=== PATIENT | male | born 1945 | race Caucasian/White ===

== ENCOUNTER → 2017-12-04 09:16 | Outpatient (CLI) | payer MEDICARE, OTHER, SELFPAY ==
--- NOTE | 2017-12-04 09:21 | RAD_ITS ---
XR Chest 2 Views INDICATION: patient has been ill x 2 months, aspiration pneumonia COMPARISON: None TECHNIQUE: Frontal and lateral views of the chest FINDINGS: The heart size and pulmonary vascularity are within normal limits. Lungs are clear without evidence of airspace consultation of pleural effusion. Osseous structures demonstrate bridging osteophytes at the thoracic spine. Postsurgical changes are noted at the right shoulder. RAD/Chest PA and Lateral IMPRESSION: No radiographic evidence of acute intrathoracic disease. at 2027 Reported and signed by: Lydia Riddle MD Electronically Signed: Lydia Riddle MD at 19:25 EST Tel , Service support ,
== END ==
PROVIDERS: Family Provider Internal Medicine; PCP Internal Medicine; Visit Provider Internal Medicine
DX: J69.0 Pneumonitis due to inhalation of food and vomit (principal)
CPT/HCPCS: 71046

== ENCOUNTER → 2018-01-15 16:43 | Outpatient (CLI) | payer MEDICARE, OTHER, SELFPAY ==
[2018-01-15 19:43] LABS: Free T3 2.5 pg/mL (2.18-3.98); T4 Free Direct 0.83 ng/dL (0.76-1.46); Thyroid Stim Hormone (TSH) 0.14 uIU/mL (0.358-3.74)
== END ==
PROVIDERS: Family Provider Internal Medicine; PCP Internal Medicine; Visit Provider Internal Medicine Endocrinology, Diabetes & Metabolism
DX: E05.20 Thyrotoxicosis with toxic multinodular goiter without thyrotoxic crisis or storm (principal)
CPT/HCPCS: 84439; 84443; 84481

== ENCOUNTER → 2018-02-21 16:43 | Outpatient (CLI) | payer MEDICARE, OTHER, SELFPAY ==
--- NOTE | 2018-02-21 16:47 | RAD_ITS ---
STUDY: X-RAY - RIGHT KNEE REASON FOR EXAM: Male, 73 years old. PAIN S/P FALL LAST NIGHT TECHNIQUE: 4 view(s) of the knee. COMPARISON: None. FINDINGS: Normal visualized distal femur. Normal visualized proximal tibia and fibula. Normal proximal tibiofibular articulation. There is mild degenerative arthrosis of the medial femorotibial compartment. Moderate joint space loss noted. Normal lateral femorotibial compartment. Normal patellofemoral articulation. There is a moderate volume joint effusion. There is mild enthesopathy seen in association with the patella tendon insertion upon the tibia. RAD/Knee 4 or More Views IMPRESSION: Medial joint space loss. Moderate joint effusion. No evidence of fracture or dislocation. Electronically Signed: Susan Alicia MD at 17:23 EDT Tel , Service support ,
--- NOTE | 2018-02-21 16:47 | RAD_ITS ---
STUDY: X-RAY - RIGHT TIBIA AND FIBULA REASON FOR EXAM: Male, 73 years old. PROXIMAL PAIN S/P FALL LAST NIGHT TECHNIQUE: 2 view(s) of the tibia and fibula were obtained. COMPARISON: None. FINDINGS: Normal visualized tibia. There does appear enthesopathy seen in association with the insertion site of the patella tendon upon the tibia. Normal visualized fibula. There is moderate medial joint space loss of the knee. The articulation at the ankle has an unremarkable appearance. No fracture. The soft tissue structures are unremarkable. RAD/Tibia & Fibula 2 Views IMPRESSION: No acute abnormality. No evidence fracture. Electronically Signed: Susan Alicia MD at 17:23 EDT Tel , Service support ,
== END ==
PROVIDERS: Family Provider Internal Medicine; PCP Internal Medicine; Visit Provider Internal Medicine
DX: M25.561 Pain in right knee (principal); M25.461 Effusion, right knee
CPT/HCPCS: 73564; 73590

== ENCOUNTER → 2018-02-22 16:53 | Outpatient (CLI) | payer MEDICARE, OTHER, SELFPAY ==
[2018-02-22 16:58] LABS: Bacteria 0 SEEN /hpf (None Seen); Mucous, Urine 0 SEEN /hpf (<or=2+)
--- NOTE | 2018-02-22 17:23 | RAD_ITS ---
STUDY: X-RAY CHEST REASON FOR EXAM: Male, 73 years old. Syncope. TECHNIQUE: PA and lateral views of the chest. COMPARISON: December 04, 2017. FINDINGS: There is hyperinflation of the lungs consistent with chronic obstructive lung disease (COPD). There is no demonstrated pleural abnormality. Normal size heart. Normal mediastinum and seble. Normal visualized pulmonary arteries. There is atherosclerotic tortuosity of the aortic arch and descending thoracic aorta. There are diffuse degenerative changes of the visualized thoracic spine. Postoperative changes of the right shoulder. There is no demonstrated abnormality of the visualized soft tissue structures of the upper abdomen. RAD/Chest PA and Lateral IMPRESSION: Degenerative changes, as described above. No demonstrated acute cardiopulmonary process. Electronically Signed: Camacho Colon MD at 16:52 EDT , Service support ,
[2018-02-22 17:46] LABS: Color, Urine Yellow (Yellow); Glucose, Dipstick Normal (Normal); Ketone-Dipstick Negative (Negative); Leukocyte Esterase-Dipstick 25 /ul (Negative); Nitrite-Dipstick Negative (Negative); Occult Blood-Urine 10 /ul (Negative); Protein-Dipstick Negative (Negative); Urine Bilirubin Dipstick Negative (Negative); Urine Clarity Clear (Clear); Urine Urobilinogen Normal (Normal)
[2018-02-22 17:49] LABS: Hematocrit 35.6 % (40-54); Hemoglobin 11.7 g/dl (13.0-16.5); Mean Corp Hgb Conc 32.9 g/gl (32-36); Mean Corpuscular Volume 94.4 fL (80-94); Mean Platelet Vol. 9.2 fl (6.2-12.0); Platelet Count 126 K/mm3 (150-450); RBC Distribution Width CV 13.2 % (11.6-14.6); RBC Distribution Width SD 43.7 fl (35.1-43.9); Red Blood Count 3.77 M/mm3 (4.6-6.2); White Blood Count 4.2 K/mm3 (4.4-11.0)
[2018-02-22 17:53] LABS: Red Blood Cells-Urine 0-5 SEEN /hpf (0-5); Squamous Epithelial Cells - UA 0-5 SEEN /hpf (0-5); White Blood Cells 0-5 SEEN /hpf (0-5)
[2018-02-22 18:03] LABS: Anion Gap 6 (5-15); BUN 25 mg/dL (7-18); BUN/Creat Ratio 20.2 RATIO (10-20); Calcium,Total 8.5 mg/dL (8.5-10.1); Chloride 106 mmol/L (98-107); Creatinine, Serum 1.24 mg/dL (0.70-1.30); EST Glomerular Filtration Rate 60 mL/min (>60); Est Glom Filt Rate - Afr Amer 73 mL/min (>60); Glucose 84 mg/dL (74-106); Potassium 4.2 mmol/L (3.5-5.1); Sodium Level 140 mmol/L (136-145)
[2018-02-22 18:25] LABS: Scan Indicated on CBC? Y/N NO
[2018-02-22 19:40] LABS: International Normalized Ratio 1.1; Prothrombin Time (Protime)PT. 13.9 SECONDS (11.7-14.9)
== END ==
PROVIDERS: Family Provider Internal Medicine; PCP Internal Medicine; Visit Provider Internal Medicine Cardiovascular Disease
DX: R55 Syncope and collapse (principal)
CPT/HCPCS: 36415; 71046; 80048; 81001; 85027; 85610

== ENCOUNTER → 2018-02-26 09:08 | Day surgery (SDC) | payer MEDICARE, OTHER, SELFPAY ==
[2018-02-23 09:10] VITALS: BMI 31.2
--- NOTE | 2018-02-26 11:38 | CL.IE_ITS ---
Patient: ALVERTO MCCONNELL Study Date: 02/26/2018 Performing: Grady Dolan MD : 1945 Age: 73 Gender: male PROCEDURES PERFORMED [id number] OF LOOP RECORDER INDICATIONS Syncope PROCEDURE DETAILS The patient was brought to the Catheterization Lab in the postabsorptive nonsedated state. Informed consent was obtained prior to the procedure. Local anesthetic was given subcutaneously to the left up per chest area with Lidocaine 2%. Incision was made to the left upper chest. ICM Loop Recorder was in serted. Steri-strips applied to left subclavicular incision. The patient tolerated the procedure wel l. Estimated Blood Loss: < 10 mls IMPLANTED / EX-PLANTED DEVICES IMPLANTED DEVICE(S): ICM Loop Recorder - Welder Setter Resistance Machine: Vericept, Model # Reveal [id number] LNQ11 , Serial # [id number] DEVICE PARAMETERS CONCLUSIONS / RECOMMENDATIONS Device Conclusions: Successful implantation of a patient activated loop recorder. Device Recommendations: Follow up with Primary Care Physician PROCEDURE MEDICATIONS Versed 1 mg IV Oxygen: 2 L/min via nasal cannula Ancef 2 Gm IV @ 02/26/2018 11:05:28 Signed By Grady Dolan MD On 02/26/2018 11:37:39 Grady Dolan MD
== END ==
PROVIDERS: Family Provider Internal Medicine; PCP Internal Medicine; Visit Provider Internal Medicine Cardiovascular Disease
DX: I95.1 Orthostatic hypotension (principal); E78.5 Hyperlipidemia, unspecified; I49.1 Atrial premature depolarization; F03.90 Unspecified dementia, unspecified severity, without behavioral disturbance, psychotic disturbance, mood disturbance, and anxiety; G20 Parkinson's disease; F02.80 Dementia in other diseases classified elsewhere, unspecified severity, without behavioral disturbance, psychotic disturbance, mood disturbance, and anxiety; Z79.899 Other long term (current) drug therapy
CPT/HCPCS: 33282; 99152; J7040

== ENCOUNTER → 2018-05-09 09:12 | Outpatient (CLI) | payer MEDICARE, OTHER, SELFPAY ==
--- NOTE | 2018-05-09 09:20 | RAD_ITS ---
STUDY: BARIUM ESOPHAGRAM REASON FOR EXAM: Male, 73 years old. Dysphagia RADIATION DOSAGE (If Supplied By Facility): CTDIvol = ( ) mGy, DLP = ( ) mGycm. Individualized dose optimization techniques were used for this CT.? FLUOROSCOPY TIME (if supplied): (1:15) minutes/seconds TECHNIQUE: Air-contrast COMPARISON: None. FINDINGS: Swallowing was initiated normally. No nasopharyngeal reflux or aspiration. There is no Zenker's diverticulum. But the lateral view does show a prominent cricopharyngeus muscle indentation upon the posterior esophagus. There is normal peristalsis in the proximal mid esophagus. The distal esophagus however demonstrates tertiary contractions and there was both intraesophageal and GE reflux. No evidence of a hiatal hernia. 13 mm barium pill passed through the esophagus without difficulty. RAD/Esophagus Only IMPRESSION: Presbyesophagus with intraesophageal, and GE reflux No Zenker's diverticulum but there is a prominent cricopharyngeus muscle indentation upon the posterior esophagus Electronically Signed: Carl Azevedo MD at 10:26 EDT , Service support ,
== END ==
PROVIDERS: Family Provider Internal Medicine; PCP Internal Medicine; Visit Provider Internal Medicine
DX: R13.10 Dysphagia, unspecified (principal)
CPT/HCPCS: 74220

== ENCOUNTER → 2018-05-21 07:50 | Outpatient (CLI) | payer MEDICARE, OTHER, SELFPAY ==
--- NOTE | 2018-05-21 08:02 | RDU_ITS ---
Reason For Study: HTN Right Renal Artery Left Renal Artery Right renal artery ostium 64/21 Left renal artery ostium 67/21 RSV/EDV. PSV/EDV. Right renal artery proximal 94/30 Left renal artery proximal PSV/EDV PSV/EDV. 79/23 . Right renal artery mid 122/40 Left renal artery mid 76/25 PSV/EDV. PSV/EDV . Right renal artery distal 52/16 Left renal artery distal 75/24 PSV/EDV. PSV/EDV. Right RAR 1.61. Left RAR 1.04. Right Renal Parenchyma Left Renal Parenchyma Upper Pole Medula 24/8 PSV/EDV. Left upper pole medulla 28/7 Right upper pole medulla EDR 0.33 . PSV/EDV . Right upper pole medulla R.I. Left upper pole medulla EDR 0.25 . 0.68 . Left upper pole medulla R.I. 0.74 . Upper [place]ikh Cortx 28/8 PSV/EDV. UP Cortex 11/4 PSV/EDV. Right upper pole cortex EDR 0.29 . Left upper pole cortex EDR 0.36 . Right upper pole cortex R.I. 0.71 . Left upper pole cortex R.I. 0.63 . Right lower Pole medulla 22/8 Left lower Pole medulla 27/7 PSV/EDV . PSV/EDV . Right lower pole medulla EDR 0.36 . Left lower pole medulla EDR 0.26 . Right lower pole medulla R.I. Left lower pole medulla R.I. 0.74 . 0.66 . Lower Pole Cortx 16/5 PSV/EDV. Lower Pole Cortex 21/6 PSV/EDV. Left lower pole cortex EDR 0.31 . Right lower pole cortex EDR 0.29 . Left lower pole cortex R.I. 0.72 . Right lower pole cortex R.I. 0.70 . Left Renal Hilar Right Renal Hilar LT Hilar avg 46/12 PSV/EDV . Right Hilar avg 42/15 PSV/EDV. Left hilar acceleration time 66 Right hilar acceleration time 37 m/sec. m/sec. Left Renal Dimensions Right Renal Dimensions Left kidney size 10.2 cm . Right kidney size 10.8 cm . Left cortical dimension 1.23 cm . Right cortical dimension 1.21 cm . Aorta Proximal abdominal aorta 2.04cm x 2.05 cm . Proximal abdominal aorta peak systolic velocity is 76 cm/sec . Distal abdominal aorta 1.83cm x 1.84 cm . Distal abdominal aorta peak systolic velocity is 95 cm/sec . Interpretation Summary Dimensions of the intra-abdominal aorta appear normal, without evidence of aneurysmal dilatation. Renal artery velocities are bilaterally normal. Acceleration times are normal bilaterally. Renal- aortic ratios are also bilaterally normal. There is no evidence of hemodynamically significant renal artery stenosis on either side. Cortical dimensions are bilaterally normal. Kidneys appear normal in size bilaterally. Ordering Physician: Karolina Kasper Referring Physician: Karolina Kasper Performed By: Pau Aguilar, RDTRISTAN, RVT
== END ==
PROVIDERS: Family Provider Internal Medicine; PCP Internal Medicine; Visit Provider Internal Medicine
DX: I10 Essential (primary) hypertension (principal)
CPT/HCPCS: 93975

== ENCOUNTER 2018-08-08 12:00 | Outpatient (RCR) | payer MEDICARE, OTHER, SELFPAY ==
--- NOTE | 2018-07-04 13:05 | HP.PTEVAL_ITS ---
Patient's Visit Information ALVERTO MCCONNELL is a 73 year old M referred to Physical Therapy by Karolina Kasper DO with a diagnosis of Neck pain. Date of Evaluation: 07/04/18 Physical Therapist: Jarrell Zuniga PT, - Visit Plan Frequency: 2-3x /Week Duration: 4 Weeks Plan: Postural edu, DTR, MH, Mob's, US, and HEP - Subjective Subjective: Pt reports he has had intermittent cervical spine pain for 3 years. Pt reports he was Dx'd with Parkinson's Disease at that time, and notes he believes the posture he maintains from that disease is what has caused his pain. Pt reports most of his neck pain is anterolateral in nature. Pt reports he is unable to look up anymore ssecondary to his neck pain. Pt reports no UE radiculopathy at this time. No sleep diff secondary to pain. No recent xrays taken of C/S. Pt reports he has difficulty with shaving and showering secondary to neck pain. Lying down helps to decrease his pain. 4/10 at rest, 9/10 at worst (when pt is showering or out walking) - Pain Neck pain Pain Intensity (Out of 10): 4 Pain Intensity Range: 9 - Objective Neuro: B UE sensation is WNL to light touch. B bicepital reflex= 2/3. Palpation : Pt has sig MM guarding throughout his C/S. ROM: Pt is severely limited in all planes. Pain with all motions. UE MMT: B UE's 5/5 throughout. Special testing: Pain with both - Goals Goal 1:: Decrease neck pain x 50% to aid with IADL's Goal Time Frame: 4-6 Weeks Goal 2:: Increase C/S ROM x 1 grade to aid with showering Goal Time Frame: 4-6 Weeks Goal 3:: I with HEP Goal Time Frame: 4-6 Weeks - Rehabilitation Potential Physical Therapy Diagnosis: Pt has neck pain, poor posture, and difficulty with walking secondary deg changes in C/S Rehabilitation Potential: Good - Anticipated Interventions Patient/Client Instruction: Educate patient on: Condition, Plan of Care For the Purpose of:: To improve self management Manual Therapy Techniques to Include: Soft tissue mobilization For the Purpose of:: To decrease pain, To increase ROM Thermo therapy (hot pack): Yes Ultrasound (thermal/non thermal): Yes For the Purpose of:: To decrease pain Thank you for the opportunity to evaluate your patient. For Medicare and Medicare HMO plans, please review the plan of care and approve it. It will need to be FAXED BACK to us at [phone] for Medicare purposes. Please let me know if there are questions or concerns regarding this plan of care. Physician Signature: Date:
--- NOTE | 2018-11-06 13:20 | HP.PT.NRP ---
HP - Discharge Summary (1) - Patient Information ALVERTO MCCONNELL was seen in my office for initial evaluation on 07/04/18. The following Plan of Care was established for this patient: Initial Frequency: 2-3x /Week Initial Duration: 4 Weeks - Anticipated Interventions Patient/Client Instruction: Educate patient on: Condition, Plan of Care For the Purpose of:: To improve self management Manual Therapy Techniques to Include: Soft tissue mobilization For the Purpose of:: To decrease pain, To increase ROM Thermo therapy (hot pack): Yes Ultrasound (thermal/non thermal): Yes For the Purpose of:: To decrease pain This patient was last seen in our office . Pertinent comments regarding their Physical therapy will appear below: Pt was treated for 8 PT visits for his neck pain through the date of 08/13/18. Pt did not return after that date and is therefore discontinued at this time. At this point I will be discontinuing this patient from physical therapy. I would be happy to see this patient again in the future if found appropriate by the physician. Thank you! Jarrell Zuniga, PT, ATC
== END 2018-08-08 19:00 | disposition home or self-care (01) ==
LOC: PT 12:00
PROVIDERS: Family Provider Internal Medicine; PCP Internal Medicine; Visit Provider Internal Medicine
DX: M62.838 Other muscle spasm (principal)
CPT/HCPCS: 97035; 97110; 97140; 97162

== ENCOUNTER → 2018-08-15 14:06 | Outpatient (CLI) | payer MEDICARE, OTHER, SELFPAY ==
--- NOTE | 2018-08-15 14:10 | RAD_ITS ---
STUDY: X-RAY - UNILATERAL RIBS ( LEFT ) WITH CHEST REASON FOR EXAM: Male, 73 years old. Left flank pain/rib pain TECHNIQUE - RIBS: 4 view(s) of the ribs. TECHNIQUE - CHEST: Single frontal view of the chest. COMPARISON: None. FINDINGS - RIBS: Normal visualized ribs without a demonstrated fracture. FINDINGS - CHEST: The lungs are clear and expanded. There is no demonstrated pleural abnormality. Normal size heart. Normal mediastinum and seble. Normal visualized pulmonary arteries. Normal visualized aortic arch and descending thoracic aorta. Normal visualized thoracic spine. Normal visualized ribs, clavicles, and shoulders. There is no demonstrated abnormality of the visualized soft tissue structures of the upper abdomen. RAD/Ribs Uni Min 3V w/PA Chest IMPRESSION: RIBS: Normal x-ray examination of the ribs. CHEST: Normal x-ray examination of the chest. Electronically Signed: David Santiago DO at 14:04 EDT Tel , Service support ,
--- NOTE | 2018-08-15 14:10 | RAD_ITS ---
STUDY: X-RAY - THORACIC SPINE REASON FOR EXAM: Male, 73 years old. Back pain TECHNIQUE: 4 view(s) of the thoracic spine were obtained. COMPARISON: None. FINDINGS: Normal kyphosis of the thoracic spine. There is no substantial scoliosis. There is multilevel endplate spondylosis of the thoracic vertebrae. There is multilevel disc space narrowing of the thoracic spine. The soft tissue structures are unremarkable. RAD/Thoracic Spine 3 Views IMPRESSION: No acute findings, degenerative changes Electronically Signed: David Santiago DO at 14:05 EDT Tel , Service support ,
== END ==
PROVIDERS: Family Provider Internal Medicine; PCP Internal Medicine; Referring Provider Internal Medicine; Visit Provider Internal Medicine
DX: R10.9 Unspecified abdominal pain (principal)
CPT/HCPCS: 71101; 72072

== ENCOUNTER → 2019-07-29 09:11 | Outpatient (CLI) | payer MEDICARE, OTHER, SELFPAY ==
[2019-06-12 14:48] VITALS: BMI 32.5
--- NOTE | 2019-07-30 10:30 | EEG ---
- Electroencephalogram Date of service 07/29/2019 This is an 18 channel electroencephalogram performed on this 74-year-old male with a history of passing out spells. This test is performed utilizing the International 10-20 electrode placement protocol as well as photic stimulation, hyperventilation and EKG reference leads. Background activity is mildly slow at 6 Hz symmetrically in the posterior leads. This does attenuates to some degree with eye opening. Hyperventilation is performed for 3 minutes with good effort with no lateralizing or epileptiform changes. The post hyperventilatory phase is unremarkable. The patient remained awake throughout the recording with no lateralizing or epileptiform changes and photic stimulation generates a normal driving response in the posterior leads. KG is normal sinus rhythm throughout the recording. Impression this is an abnormal electroencephalogram due to the presence of diffuse mild nonspecific slowing this may be age-related. There are no epileptiform changes. Dictated using [employer] software not proofread
== END ==
PROVIDERS: Family Provider Internal Medicine; PCP Internal Medicine; Referring Provider Internal Medicine; Visit Provider Internal Medicine
DX: R56.9 Unspecified convulsions (principal)
CPT/HCPCS: 95819

== ENCOUNTER → 2019-12-16 12:47 | Outpatient (CLI) | payer MEDICARE, OTHER, SELFPAY ==
[2019-12-04 10:37] VITALS: BMI 32.7
--- NOTE | 2019-12-16 12:52 | RAD_ITS ---
HISTORY: neck pain, hx parkinsons disease, does not have much mobility TECHNIQUE: Cervical spine 5 views Number of images including paperwork: 6 COMPARISON: 07/08/2015 FINDINGS: VERTEBRAE: No acute fracture. VERTEBRAL ALIGNMENT: No traumatic subluxation. DISKS AND JOINTS: Mild discogenic degenerative changes. Anterior osteophytes. Facet arthropathy and uncovertebral degenerative changes, minimal change compared to 2014. Multilevel bilateral neuroforaminal narrowing, grossly similar as assessed, evaluation somewhat limited by obliquity. SOFT TISSUES: Unremarkable paraspinous soft tissues. RAD/Cerv Spine 2 or 3 Views IMPRESSION: Degenerative changes without acute osseous abnormality. at 0005 Reported and signed by: Ragini Monahan MD Electronically Signed: Ragini Monahan MD at 0:04 EST Tel , Service support ,
--- NOTE | 2019-12-16 12:53 | RAD_ITS ---
HISTORY: left hip pain, hx parkinsons, no trauma ADDITIONAL HISTORY: None provided. TECHNIQUE: AP and lateral views of the left hip with AP pelvis Number of images including paperwork: 3 COMPARISON: None FINDINGS: BONES: No acute fracture. JOINTS: No subluxation. Minimal degenerative changes of the hips. Degenerative changes of the visualized spine and sacroiliac joints. SOFT TISSUES: No distinct foreign body. RAD/HIP, UNI W/ Pelvis 2-3 Views IMPRESSION: Degenerative changes without acute osseous abnormality. at 0001 Reported and signed by: Ragini Monahan MD Electronically Signed: Ragini Monahan MD at 0:01 EST Tel , Service support ,
[2019-12-16 13:41] LABS: Absolute Lymphocyte Count 0.97 X10^3/uL (0.83-4.51); Absolute Neutrophil Count 4.5 X10^3/uL (2.0-7.7); Basophil# 0.02 X10^3/uL; Basophil% 0.3 % (0-1); Eosinophil# 0.07 X10^3/uL; Eosinophils% 1.1 % (0-5); Hematocrit 39.3 % (40-54); Hemoglobin 12.4 g/dL (13.0-16.5); Lymphocyte # 0.97 X10^3/ul (4.0); Lymphocyte % 15.8 % (19-41); Mean Corp Hgb Conc 31.6 g/dL (32-36); Mean Corpuscular Hgb 30.6 pg (27.0-32.0); Mean Platelet Vol. 9.3 fl (6.2-12.0); Monocyte# 0.52 X10^3/uL; Monocyte% 8.5 % (0-10); NRBC Flagged by Analyzer 0 % (0-5); Neutrophil # 4.53 X10^3/uL (2.7-7.7); Neutrophil % 74.1 % (47-70); Platelet Count 134 K/mm3 (150-450); RBC Distribution Width CV 13.8 % (11.6-14.6); RBC Distribution Width SD 48.8 fl (35.1-43.9); Red Blood Count 4.05 M/mm3 (4.6-6.2); White Blood Count 6.1 K/mm3 (4.4-11.0)
[2019-12-16 14:15] LABS: ALB/GLOB Ratio 1.2 RATIO (0.9-2.4); AST(SGOT) 15 U/L (15-37); Alanine Aminotransfer ALT/SGPT 10 U/L (16-61); Alkaline Phosphatase 76 U/L (45-117); Anion Gap 3 (5-15); BUN 24 mg/dL (7-18); BUN/Creat Ratio 16.9 RATIO (10-20); Calcium,Total 9.2 mg/dL (8.5-10.1); Chloride 106 mmol/L (98-107); Creatinine, Serum 1.42 mg/dL (0.70-1.30); EST Glomerular Filtration Rate 51 mL/min (>60); Est Glom Filt Rate - Afr Amer 62 mL/min (>60); Globulin 3.2 g/dL (2.2-4.2); Glucose 86 mg/dL (74-106); Potassium 4.8 mmol/L (3.5-5.1); Protein, Total 7.2 g/dL (6.4-8.2); Sodium Level 141 mmol/L (136-145)
== END ==
PROVIDERS: PCP Internal Medicine; Referring Provider Internal Medicine; Visit Provider Internal Medicine
DX: R55 Syncope and collapse (principal); R79.89 Other specified abnormal findings of blood chemistry; M54.12 Radiculopathy, cervical region; M25.559 Pain in unspecified hip; E78.5 Hyperlipidemia, unspecified
CPT/HCPCS: 72040; 73502; 80053; 84443; 85025

== ENCOUNTER → 2019-12-23 14:19 | Outpatient (CLI) | payer MEDICARE, OTHER, SELFPAY ==
[2019-12-04 10:37] VITALS: BMI 32.7
--- NOTE | 2019-12-23 14:21 | CT_ITS ---
STUDY: CT CERVICAL SPINE WITHOUT CONTRAST REASON FOR EXAM: Male, 74 years old. CERVICAL RADICULOPATHY RADIATION DOSAGE (If Supplied By Facility): CTDIvol = ( 28.82 ) mGy, DLP = ( 660.43 ) mGycm TECHNIQUE: High resolution transaxial imaging was performed without contrast material. Sagittal and coronal images were reconstructed. Individualized dose optimization techniques were used for this CT. COMPARISON: Cervical spine radiograph December 16, 2019 FINDINGS: Normal craniovertebral junction. Normal anterior atlantoaxial articulation. Normal odontoid process. There is an exaggerated cervical lordosis. Normal vertebral bodies and posterior osseous elements. C2-3: Normal endplates. Normal disc height and morphology. Normal central canal and intervertebral neuroforamina. C3-4: Normal endplates. Normal disc height and morphology. Normal central canal and intervertebral neuroforamina. C4-5: Normal endplates. Normal disc height and morphology. Normal central canal and intervertebral neuroforamina. C5-6: Normal endplates. Normal disc height and morphology. Normal central canal and intervertebral neuroforamina. C6-7: Normal endplates. Normal disc height and morphology. Normal central canal and intervertebral neuroforamina. C7-T1: Normal endplates. Normal disc height and morphology. Normal central canal and intervertebral neuroforamina. Spondylosis. Normal visualized soft tissue structures. CT/Spine Cervical without Contras IMPRESSION: Spondylolysis. MRI may be more sensitive if clinically warranted. Electronically Signed: Addi Mejias MD at 21:00 EDT , Service support ,
== END ==
PROVIDERS: PCP Internal Medicine; Referring Provider Internal Medicine; Visit Provider Internal Medicine
DX: M54.12 Radiculopathy, cervical region (principal)
CPT/HCPCS: 72125

== ENCOUNTER → 2020-06-23 12:44 | Outpatient (CLI) | payer MEDICARE, OTHER, SELFPAY ==
[2019-12-04 10:37] VITALS: BMI 32.7
[2020-06-23 13:36] LABS: Absolute Lymphocyte Count 1.25 X10^3/uL (0.83-4.51); Absolute Neutrophil Count 3.3 X10^3/uL (2.0-7.7); Basophil# 0.02 X10^3/uL; Basophil% 0.4 % (0-1); Eosinophil# 0.13 X10^3/uL; Eosinophils% 2.5 % (0-5); Hematocrit 38.8 % (40-54); Hemoglobin 11.9 g/dL (13.0-16.5); Lymphocyte # 1.25 X10^3/ul (4.0); Lymphocyte % 24.3 % (19-41); Mean Corp Hgb Conc 30.7 g/dL (32-36); Mean Corpuscular Hgb 29.1 pg (27.0-32.0); Mean Corpuscular Volume 94.9 fL (80-94); Mean Platelet Vol. 9.7 fl (6.2-12.0); Monocyte# 0.43 X10^3/uL; Monocyte% 8.3 % (0-10); NRBC Flagged by Analyzer 0 % (0-5); Neutrophil # 3.31 X10^3/uL (2.7-7.7); Neutrophil % 64.3 % (47-70); Platelet Count 148 K/mm3 (150-450); RBC Distribution Width CV 14.1 % (11.6-14.6); RBC Distribution Width SD 49.7 fl (35.1-43.9); Red Blood Count 4.09 M/mm3 (4.6-6.2); White Blood Count 5.2 K/mm3 (4.4-11.0)
[2020-06-23 13:50] LABS: Vitamin B12 316 pg/mL (211-911)
[2020-06-23 13:58] LABS: ALB/GLOB Ratio 1.3 RATIO (0.9-2.4); AST(SGOT) 17 U/L (15-37); Alanine Aminotransfer ALT/SGPT 8 U/L (16-61); Albumin, Serum 3.9 g/dL (3.2-5.0); Alkaline Phosphatase 79 U/L (45-117); Anion Gap 4 (5-15); BUN 37 mg/dL (7-18); BUN/Creat Ratio 20.4 RATIO (10-20); Calcium,Total 8.7 mg/dL (8.5-10.1); Chloride 107 mmol/L (98-107); Creatinine, Serum 1.81 mg/dL (0.70-1.30); EST Glomerular Filtration Rate 39 mL/min (>60); Est Glom Filt Rate - Afr Amer 47 mL/min (>60); Glucose 92 mg/dL (74-106); Potassium 5.2 mmol/L (3.5-5.1); Protein, Total 6.9 g/dL (6.4-8.2); Sodium Level 140 mmol/L (136-145); Thyroid Stim Hormone (TSH) 0.59 uIU/mL (0.358-3.74)
== END ==
PROVIDERS: PCP Internal Medicine; Referring Provider Internal Medicine; Visit Provider Internal Medicine
DX: R44.3 Hallucinations, unspecified (principal); E53.8 Deficiency of other specified B group vitamins; Z79.899 Other long term (current) drug therapy
CPT/HCPCS: 80053; 82607; 84443; 85025

== ENCOUNTER 2020-07-31 17:40 | Emergency (ER) | payer MEDICARE, OTHER, SELFPAY ==
[2019-12-04 10:37] VITALS: BMI 32.7
[2020-07-31 17:41] VITALS: BP 188/114; PULSE 70; RESP 16; TEMP 36.2; O2SAT 97; BMI 32.7
[2020-07-31 18:48] VITALS: BP 134/86; PULSE 69; RESP 15; O2SAT 97
--- NOTE | 2020-07-31 18:50 | ED.RN ---
PTS REEARCHED NEW PATCH WHILE WAITING FOR ER ROOM. THEN TEXT HER PCP WHO TOLD HER TO REMOVE THE PATCH AND WAIT 30 MIN AND CHECK BP. SHE DID THAT AND BP WAS LOWER. PTS DECIDED TO TAKE PT HOME.
== END 2020-07-31 19:01 | disposition left against medical advice (07) ==
LOC: ED 18:56
PROVIDERS: Emergency Provider Emergency Medicine; PCP Internal Medicine
DX: Z53.21 Procedure and treatment not carried out due to patient leaving prior to being seen by health care provider (principal)

== ENCOUNTER → 2020-11-17 08:05 | Outpatient (REF) | payer SELFPAY ==
[2020-11-17 08:15] LABS: Hematocrit 36.8 % (40-54); Hemoglobin 11.8 g/dL (13.0-16.5); Mean Corp Hgb Conc 32.1 g/dL (32-36); Mean Corpuscular Hgb 29.5 pg (27.0-32.0); Mean Platelet Vol. 9.6 fl (6.2-12.0); Platelet Count 120 K/mm3 (150-450); RBC Distribution Width CV 13.2 % (11.6-14.6); RBC Distribution Width SD 45.3 fl (35.1-43.9); White Blood Count 4.1 K/mm3 (4.4-11.0)
[2020-11-17 08:35] LABS: Anion Gap 6 (5-15); BUN 25 mg/dL (7-18); BUN/Creat Ratio 18.8 RATIO (10-20); Calcium,Total 8.7 mg/dL (8.5-10.1); Chloride 108 mmol/L (98-107); Creatinine, Serum 1.33 mg/dL (0.70-1.30); EST Glomerular Filtration Rate 55 mL/min (>60); Est Glom Filt Rate - Afr Amer 67 mL/min (>60); Glucose 94 mg/dL (74-106); Potassium 3.8 mmol/L (3.5-5.1); Sodium Level 142 mmol/L (136-145); T4 Free Direct 1.14 ng/dL (0.76-1.46); Thyroid Stim Hormone (TSH) 0.39 uIU/mL (0.358-3.74)
== END ==
LOC: OLS.WHLTCC 08:05
PROVIDERS: PCP Internal Medicine; Visit Provider Family Medicine
DX: G20 Parkinson's disease (principal); F02.81 Dementia in other diseases classified elsewhere, unspecified severity, with behavioral disturbance; E87.8 Other disorders of electrolyte and fluid balance, not elsewhere classified; F33.9 Major depressive disorder, recurrent, unspecified
CPT/HCPCS: 36415; 80048; 84439; 84443; 85027